=== PATIENT | male | born 1945 | race Caucasian/White ===

== ENCOUNTER 2023-09-20 09:57 | Outpatient (RCR) | payer MEDICARE, BC, SELFPAY | END 2023-09-20 23:59 | disposition home or self-care (01) | LOC: RPT 09:57 | PROVIDERS: ATTENDING PHYSICIAN Internal Medicine; FAMILY PHYSICIAN Family Medicine | DX: R26.81 Unsteadiness on feet (principal); Z73.6 Limitation of activities due to disability; R26.89 Other abnormalities of gait and mobility | CPT/HCPCS: 97110; 97112; 97162 ==

== ENCOUNTER → 2023-10-18 10:09 | Outpatient (REF) | payer MEDICARE, BC, SELFPAY | LOC: RAD 10:09 | PROVIDERS: ATTENDING PHYSICIAN Nurse Practitioner Adult Health | DX: R06.00 Dyspnea, unspecified (principal) | CPT/HCPCS: 71046 ==

== ENCOUNTER → 2023-10-30 09:00 | Outpatient (REF) | payer MEDICARE, BC, SELFPAY | LOC: RCS 09:00 | PROVIDERS: ATTENDING PHYSICIAN Nurse Practitioner Adult Health; FAMILY PHYSICIAN Family Medicine; REFERRING PHYSICIAN Internal Medicine Cardiovascular Disease | DX: R06.00 Dyspnea, unspecified (principal) | CPT/HCPCS: 93306 ==

== ENCOUNTER → 2024-01-15 07:37 | Outpatient (REF) | payer MEDICARE, BC, SELFPAY ==
[2024-01-15 08:11] LABS: % Basophils 1.3 % (0-2); % Immature Granulocytes 0.5 % (0-0.5); % Lymphocytes 29.5 % (20.5-51.1); % Monocytes 8.1 % (1.7-9.3); % Neutrophils 47.6 % (42.2-75.2); Absolute Basophils 0.1 10^3/uL (0-0.2); Absolute Eosinophils 0.8 10^3/uL (0-0.7); Absolute Lymphocytes 1.8 10^3/uL (1.2-3.4); Absolute Monocytes 0.5 10^3/uL (0.1-0.6); Absolute Neutrophils 2.9 10^3/uL (1.4-6.5); Hematocrit 37.8 % (39.0-52.0); Hemoglobin 12.9 g/dL (13.0-18.0); Mean Corp Hgb Conc. 34.1 g/dL (33.0-37.0); Mean Corpuscular Hgb 32.9 pg (27.0-31.0); Mean Corpuscular Volume 96.4 fL (80.0-94.0); Nucleated Red Blood Cells % 0 % (-); Platelet Count 156 10^3/uL (130-400); Red Blood Cell Count 3.92 10^6/uL (4.70-6.10); Red Cell Dist. Width 14.4 % (11.5-14.5); White Blood Cell Count 6.1 10^3/uL (4.8-10.8)
[2024-01-15 08:51] LABS: ALT (SGPT) 108 U/L (0-50); AST (SGOT) 99 U/L (17-59); Alkaline Phosphatase 112 U/L (38-126); Blood Urea Nitrogen 20 mg/dl (9-20); Calcium 9.7 mg/dl (8.4-10.2); Carbon Dioxide 25 mmol/L (22-30); Chloride 109 mmol/L (98-107); Glucose 94 mg/dl (70-99); HDL Cholesterol 82 mg/dl; LDL Cholesterol, Calculated 125 mg/dl; Potassium 4.3 mmol/L (3.5-5.1); Sodium 141 mmol/L (135-145); Total Bilirubin 0.7 mg/dl (0.2-1.3); Total Cholesterol 238 mg/dl (50-199); Total Protein 6.6 g/dl (6.3-8.2); Triglyceride 157 mg/dl (10-149); Very Low Density Lipoprotein 31 mg/dl (0-30); eGFR 40.75
[2024-01-15 08:54] LABS: Free T4 1.71 ng/dl (0.78-2.19)
[2024-01-15 09:04] LABS: Glycohemoglobin (HgbA1c) 5.1 % (4.0-5.6)
[2024-01-15 09:07] LABS: TSH 2.39 uIU/ml (0.47-4.68)
[2024-01-15 09:26] LABS: Vitamin B12 955 pg/ml (239-931)
== END ==
LOC: REG 07:37
PROVIDERS: FAMILY PHYSICIAN Family Medicine
DX: E03.9 Hypothyroidism, unspecified (principal); E66.01 Morbid (severe) obesity due to excess calories; R73.01 Impaired fasting glucose; E78.2 Mixed hyperlipidemia; R41.89 Other symptoms and signs involving cognitive functions and awareness; I26.93 Single subsegmental thrombotic pulmonary embolism without acute cor pulmonale; K20.90 Esophagitis, unspecified without bleeding; R29.6 Repeated falls
CPT/HCPCS: 36415; 80053; 80061; 82607; 83036; 84439; 84443; 85025

== ENCOUNTER → 2024-04-12 07:28 | Outpatient (REF) | payer MEDICARE, BC, SELFPAY ==
[2024-04-12 08:09] LABS: % Basophils 0.8 % (0-2); % Eosinophils 2.9 % (0-6); % Immature Granulocytes 0.3 % (0-0.5); % Monocytes 7.7 % (1.7-9.3); % Neutrophils 55.3 % (42.2-75.2); Absolute Basophils 0.1 10^3/uL (0-0.2); Absolute Eosinophils 0.2 10^3/uL (0-0.7); Absolute Lymphocytes 2.4 10^3/uL (1.2-3.4); Absolute Monocytes 0.6 10^3/uL (0.1-0.6); Hematocrit 38.7 % (39.0-52.0); Hemoglobin 13.8 g/dL (13.0-18.0); Mean Corp Hgb Conc. 35.7 g/dL (33.0-37.0); Mean Corpuscular Hgb 33.7 pg (27.0-31.0); Mean Corpuscular Volume 94.4 fL (80.0-94.0); Mean Platelet Volume 8.8 fL (7.4-10.4); Nucleated Red Blood Cells % 0 % (-); Platelet Count 164 10^3/uL (130-400); Red Cell Dist. Width 13.2 % (11.5-14.5); White Blood Cell Count 7.2 10^3/uL (4.8-10.8)
[2024-04-12 08:29] LABS: ALT (SGPT) 32 U/L (0-50); AST (SGOT) 34 U/L (17-59); Albumin 4.2 g/dl (3.5-5.0); Alkaline Phosphatase 110 U/L (38-126); Blood Urea Nitrogen 27 mg/dl (9-20); Carbon Dioxide 27 mmol/L (22-30); Chloride 107 mmol/L (98-107); Glucose 92 mg/dl (70-99); Potassium 4.2 mmol/L (3.5-5.1); Sodium 139 mmol/L (135-145); Total Bilirubin 0.6 mg/dl (0.2-1.3); Total Protein 6.7 g/dl (6.3-8.2); eGFR 43.56
== END ==
LOC: REG 07:28
PROVIDERS: ATTENDING PHYSICIAN Family Medicine
DX: N18.31 Chronic kidney disease, stage 3a (principal); Z68.37 Body mass index [BMI] 37.0-37.9, adult; R79.89 Other specified abnormal findings of blood chemistry; D64.9 Anemia, unspecified
CPT/HCPCS: 36415; 80053; 85025

== ENCOUNTER → 2024-05-29 10:39 | Outpatient (REF) | payer MEDICARE, BC, SELFPAY | LOC: RAD 10:39 | PROVIDERS: ATTENDING PHYSICIAN Surgery Vascular Surgery; FAMILY PHYSICIAN Family Medicine; OTHER PHYSICIAN Physician Assistant Surgical | DX: Z09 Encounter for follow-up examination after completed treatment for conditions other than malignant neoplasm (principal); I86.8 Varicose veins of other specified sites | CPT/HCPCS: 93970 ==

== ENCOUNTER → 2024-06-20 10:32 | Outpatient (REF) | payer MEDICARE, BC, SELFPAY | LOC: HWRAD 10:32 | PROVIDERS: ATTENDING PHYSICIAN Family Medicine | DX: R10.11 Right upper quadrant pain (principal); K86.2 Cyst of pancreas | CPT/HCPCS: 74176 ==

== ENCOUNTER → 2025-05-16 12:05 | Outpatient (REF) | payer MEDICARE, BC, SELFPAY | LOC: MRI 3T 12:05 | PROVIDERS: ATTENDING PHYSICIAN Orthopaedic Surgery Hand Surgery; FAMILY PHYSICIAN Family Medicine | DX: M25.512 Pain in left shoulder (principal) | CPT/HCPCS: 73221 ==

== ENCOUNTER → 2025-06-05 10:11 | Outpatient (REF) | payer MEDICARE, BC, SELFPAY | LOC: DHVS 10:11 | PROVIDERS: ATTENDING PHYSICIAN Surgery Vascular Surgery; FAMILY PHYSICIAN Family Medicine | DX: I86.8 Varicose veins of other specified sites (principal); I87.2 Venous insufficiency (chronic) (peripheral) | CPT/HCPCS: 93970 ==

== ENCOUNTER 2025-06-11 06:14 | Day surgery (SDC) | payer MEDICARE, BC, SELFPAY ==
[2025-06-11] VITALS (7 sets, daily range): BP systolic 113–139; BP diastolic 60–83; BMI 27.7
[2025-06-11] MEDS: NORMOSOL-R/PLASMALYTE-A 1000 IV (08:30)
[2025-06-11] MEDS: DILAUDID 0.5 MG IV ×2 (09:54→10:02)
== END 2025-06-11 10:58 | disposition home or self-care (01) ==
LOC: SDS 06:14
PROVIDERS: ATTENDING PHYSICIAN Otolaryngology
DX: J38.2 Nodules of vocal cords (principal); Z72.0 Tobacco use
CPT/HCPCS: 31541; 88305

== ENCOUNTER → 2025-08-21 11:41 | Outpatient (REF) | payer MEDICARE, BC, SELFPAY ==
[2025-08-21 15:55] LABS: D-Dimer 0.51 ug/mlFEU (0.00-0.50)
[2025-08-21 16:07] LABS: HDL Cholesterol 80 mg/dl; LDL Cholesterol, Calculated 95 mg/dl; Magnesium 2.1 mg/dl (1.6-2.3); Very Low Density Lipoprotein 25 mg/dl (0-30)
[2025-08-21 16:27] LABS: Vitamin D, 25-OH*** 96.1 ng/mL (30-80)
[2025-08-21 16:38] LABS: Cortisol, Random 15.6 ug/dl
[2025-08-21 17:13] LABS: Folate 9.5 ng/ml (2.76-20); Vitamin B12 > 1000 pg/ml (239-931)
== END ==
LOC: OLAB 11:41
PROVIDERS: ATTENDING PHYSICIAN Nurse Practitioner Primary Care; FAMILY PHYSICIAN Family Medicine
DX: E78.2 Mixed hyperlipidemia (principal); N18.31 Chronic kidney disease, stage 3a; Z86.711 Personal history of pulmonary embolism; R26.89 Other abnormalities of gait and mobility; M62.81 Muscle weakness (generalized); I25.10 Atherosclerotic heart disease of native coronary artery without angina pectoris; Z01.818 Encounter for other preprocedural examination
CPT/HCPCS: 80061; 82306; 82533; 82550; 82607; 82746; 83735; 85379